=== PATIENT | female | born 1985 | race Caucasian/White ===

== ENCOUNTER → 2020-04-12 01:00 | Outpatient (BNVA) | payer OTHER, SELFPAY | PROVIDERS: Family Provider Family Medicine; PCP Internal Medicine; Visit Provider Internal Medicine | DX: R05 Cough (principal) | CPT/HCPCS: 87426 ==

== ENCOUNTER 2020-06-01 18:56 | Inpatient (IN) | payer OTHER, SELFPAY ==
[2020-06-01] VITALS (14 sets, daily range): BP systolic 109–139; BP diastolic 61–89; PULSE 93–100; RESP 15–17; TEMP 37.6; BMI 33.5
[2020-06-01 19:51] LABS: Basophils % 0.6 %; Eosinophils % 0.1 %; Hematocrit 35.2 % (37.0-47.0); Lymphocytes # 1.1 10^3/uL (0.8-4.8); Lymphocytes % 16.6 %; Mean Corpuscular HGB Conc 34.1 g/dL (30.0-36.0); Mean Corpuscular Hemoglobin 31.9 pg (28.0-34.0); Mean Corpuscular Volume 93.6 fL (81-99); Mean Platelet Volume 12.7 fL (7.4-10.4); Monocytes # 0.6 10^3/uL (0.2-0.9); Monocytes % 9.3 %; Neutrophils # 4.95 10^3/uL (1.8-7.7); Nucleated Red Blood Cells % 0 %; Platelet Count 181 10^3/cmm (130-400); Red Blood Count 3.76 10^6/uL (4.1-5.3); Red Cell Distribution Width 13.2 % (12.1-15.1); White Blood Count 6.8 10^3/uL (4.0-10.0)
[2020-06-01] MEDS: dextrose 5%-lactated ringers 1,000 ML 125 ML IV (20:45)
[2020-06-01] MEDS: oxytocin 30 UNIT/500 ML BAG IV (20:46)
--- NOTE | 2020-06-01 21:57 | PC.NURSE ---
Called lab requesting information on when protein/creatinine ratio would be available, lab teach reports that machine is still down for maintenance for at least another hour. voice and data technician informed that UA order being placed on patient.
[2020-06-01] MEDS: fentaNYL 50 mcg/mL INJ 2mL IV ×2 (22:05→23:09)
[2020-06-01 22:38] LABS: Add Urine Microscopic? YES; Bilirubin Urine Neg (Negative); Blood Urine 2+ (Negative); Glucose Urine UA Norm (Normal); Ketones Urine Negative (Negative); Leukocyte Esterase Urine Trace (Negative); Nitrate Urine Negative (Negative); Protein Urine Neg (Negative); RBC Urine 0-4 /hpf (0-2); Specific Gravity, Urine 1.005 (1.005-1.030); Urine Appearance Hazy (CLEAR); Urine Color Yellow (Yellow); Urobilinogen Urine Norm (Negative)
[2020-06-01 22:39] LABS: Add Urine Culture? No; Bacteria Urine 2+ /hpf; Mucus Urine TRACE /hpf
[2020-06-01 23:21] LABS: Urine Creatinine 29 mg/dL (28-217); Urine Protein Random 5 mg/dL
[2020-06-01 23:24] LABS: UPRO/UCREAT Ratio 0.17 mg/mg CR
[2020-06-02] VITALS (121 sets, daily range): BP systolic 78–157; BP diastolic 43–94; PULSE 50–157; RESP 16–17; TEMP 36.6–37.5; O2SAT 87–99
[2020-06-02] MEDS: fentaNYL 50 mcg/mL INJ 2mL IV (01:07)
[2020-06-02] MEDS: ondansetron 2 mg/ML SDV 2 mL 4 MG IVP ×2 (02:06→13:09)
[2020-06-02] MEDS: ePHEDrine 50 mg/mL Inj 10 MG IVP (02:08)
[2020-06-02] MEDS: lactated ringers 1,000 ML 999 ML IV (08:28)
--- NOTE | 2020-06-02 09:32 | ANES.PROC ---
Anesthesia Procedures Procedure/Date: 06/02/20 Epidural: Time Out Performed: Yes Consents Signed: Procedure Consent Consent: requested by attending/covering physician, from patient, risks and benefits reviewed and patient agrees to proceed Lumbar Level: L3-L4 Epidural position: sitting Epidural procedure: sterile prep of area, 1% lidocaine to numb the area, 18 g needle, negative for paresthesia passed, neg for paresthesia, test dose given, 1.5% xylocaine 1:200k epi, placed PCEA, no systemic response, sterile dressing applied and 0.2% Ropiavacaine @ mls/hr (13) Additional Comments: This was replacement epidural--patient started feeling uncomfortable, like before epidural , patient bolused 100mcg fent and 5mls 0.2% rop with no relief. Previous epidural removed with tip intact. CARLA at 6cm cath at 11cm, 5mls of 2% lido through epidural needle with improvement in pain placed on pump at 13mls/hr.
--- NOTE | 2020-06-02 09:43 | PC.NURSE ---
0926 Dr Nichole at bedside to replace epidural catheter. existing epidural catheter removed by Dr Nichole in preparation for epidural procedure.
[2020-06-02] MEDS: dextrose 5%-lactated ringers 1,000 ML 125 ML IV (11:09)
--- NOTE | 2020-06-02 14:38 | PM.DELIVERY ---
Delivery Note: Date of delivery: June 02, 2020 Pre-Delivery Course: The patient presented to the hospital last night after being found to have multiple systolic blood pressures that were elevated to my office yesterday. She also had a severe headache. She had trace protein in her urine. Given her gestational age, the decision was made to proceed with a induction. Because of her previous section, a Dougherty bulb was used to initiate induction. We also started Pitocin shortly thereafter. The following morning, the Dougherty bulb finally fell out. An amniotomy was performed. The patient also had a epidural placed, and then another second epidural placed due to the ineffectiveness of the first epidural. She then progressed to complete without difficulty. Her was otherwise unremarkable. Her blood type is O+. Her GBS and her Covid status were negative. Her initial glucose screen was positive, but her follow-up 3-hour glucose screen was negative. The remainder of her labs were within normal limits. Delivery: DELIVERY: The patient progressed to complete without difficulty. She delivered a male with a weight of 7 pounds 5 ounces with Apgars of 8, 8. The baby was delivered from the ANGY position. The baby was then completely delivered and placed on the mother's abdomen. The cord was then clamped and cut. There was a nuchal cord x1 that was easily reduced prior to delivery of the head. There was no meconium. The placenta and 3 vessel cord were delivered intact shortly thereafter. The perineum and vaginal vault were carefully examined. No significant lacerations were noted. Both the mother and the baby were in stable condition. A&P Assessment and plan (1) 39 weeks gestation of : I anticipate routine care. The mother plans to breast-feed. If all goes well, I anticipate she will be discharged home tomorrow evening. Status: Resolved (2) Gestational hypertension: Status: Resolved (3) Headache in : Status: Resolved (4) , delivered: Status: Resolved Coding Level of Care Code Acute Cullet Trucker for Chg Fwd Diagnoses 39 weeks gestation of Z3A.39 Gestational hypertension O13.9 Headache in O26.899; R51.9 , delivered O34.219
[2020-06-02] MEDS: ibuprofen 800 mg tablet PO (16:38)
[2020-06-02] MEDS: lanolin oint 7 gm 1 APPLIC TOPICAL (16:38)
[2020-06-02] MEDS: benzocaine-menthol 78 gm Canister 1 SPRAY TOPICAL (16:38)
[2020-06-02] MEDS: acetaminophen 500 mg Tablet 1000 MG PO (20:17)
[2020-06-03 02:52] LABS: Hematocrit 33.8 % (37.0-47.0); Hemoglobin 10.9 g/dL (11.5-15.3); Mean Corpuscular HGB Conc 32.2 g/dL (30.0-36.0); Mean Corpuscular Hemoglobin 31.5 pg (28.0-34.0); Mean Corpuscular Volume 97.7 fL (81-99); Mean Platelet Volume 12.2 fL (7.4-10.4); Platelet Count 141 10^3/cmm (130-400); Red Blood Count 3.46 10^6/uL (4.1-5.3); Red Cell Distribution Width 13.7 % (12.1-15.1)
[2020-06-03 04:07] VITALS: BP 101/65; PULSE 76
[2020-06-03] MEDS: acetaminophen 500 mg Tablet 1000 MG PO (06:17)
[2020-06-03] MEDS: ibuprofen 800 mg tablet PO (08:19)
[2020-06-03] MEDS: docusate sodium 100 mg Capsule PO (08:20)
[2020-06-03] MEDS: prenatal vitamin Capsule 1 CAP PO (08:20)
[2020-06-03 10:19] VITALS: BP 112/76; PULSE 84
--- NOTE | 2020-06-03 11:53 | P.DS_ITS ---
Discharge Providers HOME SERVICE TECHNICIAN Date of Admission: 06/01/20 18:56 Date of Discharge: 06/03/20 Attending Provider at Admission: Lan Avery MD Attending Provider at Discharge: Lan Avery MD Primary Care Provider: Bridger Acevedo MD Diagnoses at Discharge Discharge Diagnosis (1) 39 weeks gestation of : Status: Acute (2) Gestational hypertension: Status: Acute (3) Headache in : Status: Acute (4) , delivered: Status: Acute Reason for Visit Reason for Visit: induction of labor Hospital Course Hospital Course The patient presented to the hospital at 38 weeks and 6 days with elevated blood pressure and a headache. Thankfully, her headache and her blood pressure resolved shortly after arrival to hospital. A Dougherty bulb induction was initiated due to her history of section. She is also placed on Pitocin. After the Dougherty bulb was expelled, and amniotomy was performed. She progressed to complete and had an unremarkable delivery of a healthy appearing male infant. Her course was also unremarkable. She breast-fed well. Her pain was well controlled. Her bleeding was within normal limits. Information Peripartum Data: Delivery Method: Vaginal Physical Exam Narrative: EXAM NARRATIVE: The patient is alert. She appears comfortable. Her heart has a regular rate and rhythm with no murmurs appreciated. Lungs are clear to auscultation bilaterally. Her fundus is firm and below the umbilicus. Urinary Catheter Management^: Dougherty Latex: Cath Placed During This Visit: yes Reason for Continuing Indwelling Catheter: Required Immobilization for Trauma or Surgery or Anesthesia Urinary Catheter Date of Insertion: 06/02/20 Urinary Catheter Time of Insertion: 03:26 Discharge Data Data Completed and Pending: Labs from last 24 hours 06/03/20 02:35 WBC 8.0 RBC 3.46 L Hgb 10.9 L Hct 33.8 L MCV 97.7 MCH 31.5 MCHC 32.2 RDW 13.7 Plt Count 141 MPV 12.2 H Vitals: Last Vital Signs Temp 99.5 F 06/02/20 16:03 Pulse 84 06/03/20 10:19 Resp 16 06/02/20 11:15 BP 112/76 06/03/20 10:19 Pulse Ox 99 06/02/20 09:19 Discharge Plan Discharge Patient Disposition: Home Condition: Stable Prescriptions: New ibuprofen 800 mg Tablet 800 mg PO TID Qty: 45 RF: 0 Discontinued famotidine [Pepcid] 20 mg Tablet 20 mg PO DAILY RF: 0 promethazine 25 mg tablet 25 mg PO Q6H PRN (Reason: Nausea) RF: 0 Discharge Orders: Discharge Order (Routine); Ordered 06/03/20 Ordered By: Lan Avery Referrals: Lan Avery MD [Family Provider] - 6 Weeks Charels Garcia MD [Physician] - 2 weeks (Umbilical hernia) Discharge Diet: Regular Discharge Activity: Limit activity as instructed Activity Restrictions/Additional Instructions: Encourage taking [id number]-ois-[id number] vitamin Discharge Attestations HOME SERVICE TECHNICIAN Time Spent in Discharge Care*: less than 30 min Coding Level of Care Code Acute Senior Supplier Quality Engineer for Chg Fwd Diagnoses 39 weeks gestation of Z3A.39 Gestational hypertension O13.9 Headache in O26.899; R51.9 , delivered O34.219
[2020-06-03 15:18] VITALS: BP 115/80; PULSE 92
[2020-06-03 15:25] VITALS: BP 115/80; PULSE 92; RESP 16; TEMP 36.3
== END 2020-06-03 15:25 | disposition home or self-care (01) | DRG 807 ==
PROVIDERS: Admitting Provider Family Medicine; Family Provider Family Medicine; PCP Internal Medicine; Visit Provider Family Medicine
DX: O13.4 Gestational [pregnancy-induced] hypertension without significant proteinuria, complicating childbirth (principal); Z37.0 Single live birth; Z3A.39 39 weeks gestation of pregnancy; O34.219 Maternal care for unspecified type scar from previous cesarean delivery; O69.2XX0 Labor and delivery complicated by other cord entanglement, with compression, not applicable or unspecified; O75.89 Other specified complications of labor and delivery; R51.9 Headache, unspecified
CPT/HCPCS: 12345; 36415; 51702; 59025; 59409; 81001; 82570; 84156; 85025; 85027; J2405; J2795; J3010

== ENCOUNTER 2020-06-17 20:14 | Outpatient (CLI) | payer OTHER, SELFPAY ==
[2020-06-17 20:15] VITALS: BMI 29.1
--- NOTE | 2020-06-17 20:15 | PC.NURSE ---
Spoke to Dr Avery at 195 regarding this patient's baby boy who is inpatient at this time. Advised Dr Avery this patient was vomiting and was having chills. Dr Avery spoke to this patient via telephone and then provided this RN with orders to triage patient, obtain IV access, run UA, CBC, CMP. Give 1 liter bolus of NS and 4ng Zofran IVP.
[2020-06-17 20:19] VITALS: BP 111/76; PULSE 112; RESP 15; TEMP 37.2; O2SAT 96
[2020-06-17 20:50] LABS: Basophils % 0.6 %; Eosinophils # 0.1 10^3/uL (0.0-0.8); Hematocrit 42.1 % (37.0-47.0); Lymphocytes # 0.6 10^3/uL (0.8-4.8); Lymphocytes % 11.4 %; Mean Corpuscular HGB Conc 33.3 g/dL (30.0-36.0); Mean Corpuscular Volume 93.3 fL (81-99); Mean Platelet Volume 10.4 fL (7.4-10.4); Monocytes % 0.8 %; Neutrophils # 4.32 10^3/uL (1.8-7.7); Neutrophils % 86.2 %; Nucleated Red Blood Cells % 0 %; Platelet Count 318 10^3/cmm (130-400); Red Blood Count 4.51 10^6/uL (4.1-5.3); Red Cell Distribution Width 12.9 % (12.1-15.1)
[2020-06-17] MEDS: sodium chloride 0.9% 1,000 ML 999 ML IV (20:57)
[2020-06-17] MEDS: ondansetron 2 mg/ML SDV 2 mL 4 MG IVP (20:58)
[2020-06-17 21:05] LABS: Alanine Aminotransferase 27 U/L (0-33); Albumin Level 3.8 g/dL (3.5-5.2); Alkaline Phosphatase 134 IU/L (35-105); Anion Gap 17.7 (5-19); Aspartate Amino Transferase 25 U/L (0-32); Blood Urea Nitrogen 17 mg/dL (6-20); Calcium 8.9 mg/dL (8.5-10.5); Carbon Dioxide 23 mmol/L (22-29); Chloride 104 mmol/L (98-107); Globulin 3.5 g/dL (1.3-4.6); Glomerular Filtration Rate 115.9 mL/min (90-130); Glucose 118 mg/dL (65-115); Osmolality Calculated 295 mOsm/kg (285-295); Potassium 3.7 mmol/L (3.5-5.1); Sodium 141 mmol/L (136-145); Total Bilirubin 0.6 mg/dL (0.15-1.2); Total Protein 7.3 g/dL (6.6-8.7)
[2020-06-17 22:19] LABS: Blood Urine 3+ (Negative); Glucose Urine UA Norm (Normal); Ketones Urine 1+ (Negative); Nitrate Urine Negative (Negative); Protein Urine Neg (Negative); Specific Gravity, Urine 1.005 (1.005-1.030); Urine Appearance Hazy (CLEAR); Urine Color Yellow (Yellow); pH Urine 5 (5-7)
[2020-06-17 22:20] LABS: Bilirubin Urine Neg (Negative); Leukocyte Esterase Urine 2+ (Negative); Urobilinogen Urine Norm (Negative)
[2020-06-17 22:25] LABS: RBC Urine 80-100 /hpf (0-2); WBC Urine 25-40 /hpf (0-5)
[2020-06-17 22:26] LABS: Add Urine Culture? No; Bacteria Urine 1+ /hpf; Mucus Urine TRACE /hpf
[2020-06-17] MEDS: cefTRIAXone 1,000 MG in sodium chloride 0.9% (plus) 50 ML 100 MG IV (22:54)
[2020-06-17 23:41] VITALS: BP 101/65; PULSE 127; RESP 17; TEMP 37.8; O2SAT 96
[2020-06-17 23:55] VITALS: BP 101/65; PULSE 127; RESP 17; TEMP 37.8; O2SAT 96
--- NOTE | 2020-06-18 02:33 | PC.NURSE ---
Patient complains of pain in Right side. No rebound tenderness noted. Pain is not on abdomen or back but confined to side.
--- NOTE | 2020-06-18 02:37 | PC.NURSE ---
Patient complains of pain in Right side. No rebound tenderness noted. Pain is not on abdomen or back but confined to side. Patient reports pain has been present since after delivery.
== END 2020-06-17 23:55 | disposition home or self-care (01) ==
LOC: OPOB 20:15 → OBGYN 20:17
PROVIDERS: Family Provider Family Medicine; PCP Internal Medicine; Visit Provider Family Medicine
DX: O21.9 Vomiting of pregnancy, unspecified (principal); Z3A.00 Weeks of gestation of pregnancy not specified
CPT/HCPCS: 36415; 80053; 81001; 85025; 87086; 99211; J0696; J2405; J7030

== ENCOUNTER 2020-06-18 07:47 | Observation (INO) | payer OTHER, SELFPAY ==
[2020-06-18] VITALS (23 sets, daily range): BP systolic 88–112; BP diastolic 46–74; PULSE 74–117; RESP 12–19; TEMP 36.9–38.5; O2SAT 92–98
--- NOTE | 2020-06-18 07:48 | CT_ITS ---
WS: [id number] CT pelvis TECHNIQUE: Contrast-enhanced CT of the pelvis with coronal and sagittal reformatted images. CLINICAL INFORMATION: ? appy vs. septic thrombophlebitis COMPARISON: None. DLP: 688.[address] scans at [facility] use at least one of these dose optimization techniques: automat ed exposure control; mA and/or kV adjustment per patient size (includes targeted exams where dose is matched to clinical indication); or iterative reconstruction. FINDINGS: Inflammatory stranding and edema about the appendix with large appendicolith. Findings cons istent with acute appendicitis. Appendix is retrocecal and extends cephalad off the [id number]. Di stended appendix measures 13 mm. Large appendicolith measuring 7 mm. No visualized abscess or fluid collection. Incidental fat-containing umbilical hernia. Slight anterolisthesis L5 on S1 with bilateral pars defec ts. Mild disc space narrowing L5-S1. Distended heterogeneously enhancing uterus. No significant free fluid in the pelvis. Gabi l visualized adnexa. CT/CT pelvis w con* [id number] IMPRESSION: 1. Findings compatible with acute appendicitis with appendicolith. Appendix is retrocecal and extends cephalad with the distal tip just off the [id number] . 2. No visualized periappendiceal abscess or fluid collection. 3. uterus. 4. Bilateral L5-S1 pars defects with slight anterolisthesis. Notified Lan Avery MD at 06/18/2020 10:14 AM.
[2020-06-18 08:16] LABS: Basophils # 0.1 10^3/uL (0.0-0.1); Basophils % 0.6 %; Eosinophils % 0.1 %; Hematocrit 38.3 % (37.0-47.0); Hemoglobin 12.9 g/dL (11.5-15.3); Lymphocytes # 0.4 10^3/uL (0.8-4.8); Lymphocytes % 2.9 %; Mean Corpuscular HGB Conc 33.7 g/dL (30.0-36.0); Mean Corpuscular Hemoglobin 31.2 pg (28.0-34.0); Mean Corpuscular Volume 92.5 fL (81-99); Monocytes # 0.4 10^3/uL (0.2-0.9); Monocytes % 2.5 %; Neutrophils # 13.04 10^3/uL (1.8-7.7); Neutrophils % 93.5 %; Nucleated Red Blood Cells % 0 %; Platelet Count 250 10^3/cmm (130-400); Red Blood Count 4.14 10^6/uL (4.1-5.3); Red Cell Distribution Width 13.2 % (12.1-15.1)
[2020-06-18] MEDS: iohexol 300 mg/mL 50 mL Btl PO (08:30)
--- NOTE | 2020-06-18 08:30 | PC.NURSE ---
Notified CT of patient's ability to drink about half of her lemonade contrast. CT stated that would be ok, and they would be up in about an hour to get the patient.
[2020-06-18] MEDS: sodium chloride 0.9% 1,000 ML 150 ML IV (08:38)
[2020-06-18 08:46] LABS: Alanine Aminotransferase 39 U/L (0-33); Albumin Level 3.5 g/dL (3.5-5.2); Alkaline Phosphatase 113 IU/L (35-105); Anion Gap 14.4 (5-19); Aspartate Amino Transferase 41 U/L (0-32); Blood Urea Nitrogen 14 mg/dL (6-20); Calcium 8.3 mg/dL (8.5-10.5); Carbon Dioxide 23 mmol/L (22-29); Chloride 107 mmol/L (98-107); Creatinine Clr Calc Pharmacy 150.2528; Globulin 3.1 g/dL (1.3-4.6); Glomerular Filtration Rate 115.9 mL/min (90-130); Glucose 103 mg/dL (65-115); Osmolality Calculated 293 mOsm/kg (285-295); Potassium 3.4 mmol/L (3.5-5.1); Sodium 141 mmol/L (136-145); Total Bilirubin 0.4 mg/dL (0.15-1.2); Total Protein 6.6 g/dL (6.6-8.7)
[2020-06-18] MEDS: ondansetron 2 mg/ML SDV 2 mL IVP ×2 (09:15→13:32)
[2020-06-18] MEDS: morphine 4 mg/mL SDV 1 mL IVP ×3 (09:20→13:36)
[2020-06-18] MEDS: iohexol 300 mg/mL 100 mL Btl IV (09:56)
--- NOTE | 2020-06-18 10:27 | PM.HP ---
Providers/Chief Complaint Primary Care Provider: Bridger Acevedo MD Chief Complaint: Abdominal pain History of Present Illness Myra Ramirez is a 34 year old female who is in the hospital with her child who is receiving therapy for hyperbilirubinemia. She has not had an appetite and began having pelvic pain last night. She vomited 2 times. She was triaged in the OB dept An initial evaluation showed a normal cbc and she was given zofran and a liter of fluid. Her UA demonstrated a possible UTI. She was given a gram of Rocephin. She began feeling much better. She was discharged. This morning, she still felt nauseated and was having RLQ abdominal pain. She also had a fever during the night. She was readmitted. The CBC was repeated and a CT scan was perfromed which demonstrated appendicitis. Dr Walker was contacted Review of Systems General: Reports: 10 or more systems reviewed and unremarkable except in HPI and below : Reports: vaginal bleeding (minimal - Appropriate for state) Medications/Allergies Home Medications Medication Instructions Recorded Confirmed Last Taken Type ibuprofen 800 mg PO TID #45 tab 06/03/20 06/18/20 06/17/20 Rx acetaminophen 650 mg PO Q6H PRN 06/18/20 06/18/20 Unknown History promethazine 25 mg PO Q6H PRN 06/18/20 06/18/20 06/17/20 History Allergies Allergy/AdvReac Type Severity Reaction Status Date / Time No Known Allergies Allergy Verified 06/18/20 08:35 Vitals/I&O/Wt Last Vital Signs Temp 98.5 F 06/18/20 08:33 Pulse 102 H 06/18/20 08:33 Resp 16 06/18/20 09:20 BP 93/63 06/18/20 08:33 Pulse Ox 96 06/18/20 08:33 Weight last 48 hrs Weight 186 lb Physical Exam Const: COMMON NORMALS: patient oriented x3 GENERAL APPEARANCE: cooperative and well developed HENMT: COMMON NORMALS: normocephalic and moist oral mucous membranes HEAD & SCALP: normocephalic Chest: COMMONS NORMALS: normal inspection of the chest Resp: COMMON NORMALS: normal respiratory effort and clear to auscultation bilaterally AUSCULTATION: clear to auscultation bilaterally Cardio: COMMON NORMALS: regular rate, regular rhythm, No gallops present (Cardio), No murmurs present (Cardio) and No rub (Cardio) RATE: regular rate RHYTHM: regular rhythm GI: COMMON NORMALS: Soft to palpation and no masses INSPECTION: Yes normal to inspection PALPATION: Yes Soft to palpation, Yes Tenderness to palpation present (GI) (RLQ), No Guarding due to palpation present (GI) and No Rebound tenderness present Extremity: COMMON NORMALS: normal to inspection Neuro: COMMON NORMALS: patient oriented x3 and no focal motor deficits Skin: COMMON NORMALS: no rashes or lesions noted GENERAL SKIN EXAM: no rashes or lesions noted Data : 06/18/20 08:05 06/18/20 08:05 A&P Assessment and plan (1) , delivered: Status: Resolved (2) Gestational hypertension: Status: Resolved (3) Appendicitis: Dr Walker consulted. He will see the patient shortly for evaluation and definitive treatment. Status: Acute (4) RLQ abdominal pain: Status: Acute Attestations Medical Necessity Statement*: I anticipate routine appendectomy and post operative care but length of stay will be determined based on the patients recovery from surgery. Coding Level of Care Code Acute Visitor Services Coordinator for Chg Fwd Diagnoses , delivered O34.219 Gestational hypertension O13.9 Appendicitis K37 RLQ abdominal pain R10.31
[2020-06-18] MEDS: sodium chloride 0.9% 1,000 ML 999 ML IV (11:47)
--- NOTE | 2020-06-18 12:33 | PC.NURSE ---
Baby had just taken 2 oz of expressed breastmilk from a bottle that dad fed to him. Baby was still rooting and seemed hungry. Mom took him to latch. He nursed for several minutes. We did deepen his latch. Discussed with mom why the deep latch was important. Noted baby's suck was not as strong as I think it could be as my finger slid out rather easily with very little pull from baby. I did not note any oral abnormalities. He spends about 30 min per mom's report on each breast and sometimes still wants to pacify.Mom thought baby fed about 12 times per day but the timing she reports leads me to think he may only be feeding 6 or 8 times in 24 hours. He may not be emptying the breast very well. He falls asleep easily (discussed the jaundice making him sleepy also). Suggested they feed baby about 20 to 30 min or less if he needs to be roused to continue at the breast then feed expressed breastmilk until satisfied. Mom should then pump and use that milk after next . Baby's suck may get stronger as he gains weight
--- NOTE | 2020-06-18 14:55 | PC.NURSE ---
Patient transported to OR via [facility] with OR staff at 1453.
--- NOTE | 2020-06-18 15:10 | ANES.PREANE2 ---
Pre-Anesthetic Assessment Pre-Anesthetic Assessment: Height/Weight: Height 1.7 m Weight 84.368 kg Temp Pulse Resp BP Pulse Ox 99.7 F H 117 H 16 100/67 98 06/18/20 13:30 06/18/20 13:30 06/18/20 13:36 06/18/20 13:30 06/18/20 13:30 Preop Diagnosis: Acute appendicitis Proposed Procedure: Operation Date: 06/18/20 15:35 Proposed Procedures p Laparoscopic Appendectomy(Not Applicable) - Jacky Walker MD Was Beta Valentin taken within 24 hours: N/A Social: Social History: No alcohol Exam: Pre-Anes Outpt Exam: alert, oriented x 3, clear to auscultation bilaterally and regular rate & rhythm Airway: Submandibular: WNL Cervical ROM: WNL MP: 2 Dentition: Full GI: Comments: Acute abdomen--two weeks Anesthetic Plan: ASA status: 2E Anesthesia: General Other: Mod RSI Meds/Allergies Current Medications: Current Medications Generic Name Dose Route Start Last Admin Trade Name Joseq PRN Reason Stop Dose Admin Sodium Chloride 1,000 mls @ 150 m ls/hr 06/18/20 08:00 06/18/20 11:48 Sodium Chloride 0.9% IV Infused .Q6H40M LEONCIO Infusion Morphine Sulfate 2 - 4 mg 06/18/20 11:06 06/18/20 13:36 Morphine 4 Mg/Ml Sdv 1 Ml IVP 2 mg Q2H PRN Administration SEVERE PAIN Ondansetron HCl 4 - 8 mg 06/18/20 08:44 06/18/20 13:32 Ondansetron 2 Mg /Ml Sdv 2 Ml IVP 4 mg Q4H PRN Administration NAUSEA AND VOMITI NG Data Anesthesia CBC & Chem 7: 06/18/20 08:05 06/18/20 08:05 Other Labs: Laboratory Results - last 48 hr 06/18/20 06/18/20 08:05 08:05 WBC 14.0 H RBC 4.14 Hgb 12.9 Hct 38.3 MCV 92.5 MCH 31.2 MCHC 33.7 RDW 13.2 Plt Count 250 MPV 11.0 H Neut % (Auto) 93.5 Lymph % (Auto) 2.9 [place] % (Auto) 2.5 Eos % (Auto) 0.1 Baso % (Auto) 0.6 Neut # (Auto) 13.04 H Lymph # (Auto) 0.4 L [place] # (Auto) 0.4 Eos # (Auto) 0.0 Baso # (Auto) 0.1 Nucleated RBC % (auto) 0 Nucleated RBCs # 0.0 Sodium 141 Potassium 3.4 L Chloride 107 Carbon Dioxide 23 Anion Gap 14.4 BUN 14 Creatinine 0.6 GFR Calculation 115.9 Glucose 103 Calculated Osmolality 293 Calcium 8.3 L Total Bilirubin 0.4 AST 41 H ALT 39 H Alkaline Phosphatase 113 H Total Protein 6.6 Albumin 3.5 Globulin 3.1 Cardiac Studies: No Data to Display
[2020-06-18] MEDS: scopolamine 1.5 Patch 1 PATCH TRANSDERMA (15:17)
[2020-06-18] MEDS: ondansetron 2 mg/ML SDV 2 mL 4 MG IVP (15:18)
[2020-06-18] MEDS: sodium chloride 0.9% 1,000 ML 30 ML IV (15:27)
[2020-06-18] MEDS: diphenhydrAMINE 50 mg/mL SDV 1mL 12.5 MG IVP (15:28)
[2020-06-18] MEDS: HYDROmorphone 1 mg/mL INJ 1 mL 0.5 MG IVP (15:31)
[2020-06-18] MEDS: piperacillin-tazobactam 3.375 GM in sodium chloride 0.9% (plus) 50 ML IV (16:00)
--- NOTE | 2020-06-18 17:28 | PM.OP ---
Operative Report Date of procedure: June 18, 2020 Pre-op Diagnosis: 1.Acute appendicitis Pre-op Diagnosis: 2. Supraumbilical hernia Post-op Diagnosis: 1. Acute appendicitis 2. Reducible incisional hernia containing omentum Procedure Done: Laparoscopic appendectomy Open primary repair of incisional hernia Specimens removed/disposition: Appendix Surgeon: Jacky Walker Anesthesia: General Condition: stable Disposition: PACU Procedure: The patient was taken to the Operating Room and intubated under general anesthesia after antibiotic had been administered. Using a 15 blade, a 1-cm infraumbilical incision was made and using open Spencer technique, the peritoneal cavity was entered. A 12mm port with balloon was placed and 15 mm of pneumoperitoneum was created and 10-mm 30 degree scope was introduced. Two separate 5mm ports were placed in the suprapubic area and left lower quadrant under direct visualization. The appendix was noted in the right lower quadrant and appeared acutely inflamed and adherent to the cecum. Using [place] forceps, an opening was made in the mesoappendix near the base of the appendix. An Endo MARÍA ELENA stapler 45mm long 3.5mm blue load was introduced to divide the appendix at it's base. Using electrocautery, the mesoappendix including the appendicular artery was divided. There was no bleeding noted and the staple line appeared intact. EndoCatch bag was introduced to remove the appendix. All three ports were removed under direct visualization and there was no bleeding noted on the port sites. The umbilical incision was extended and the hernia had been previously visualized with a laparoscope superior to the umbilicus. Using electrocautery, subcutaneous flaps were raised superiorly and using Metzenbaum scissors the incisional hernia sac superior to the umbilical stalk was excised. The hernia defect measured about 4 cm. The hernia defect was closed primarily using 0 Vicryl sutures. 20 cc of 0.5% Marcaine was infiltrated at the port sites. The fascia at the umbilical port was closed using figure of eight 0-Vicryl sutures and subcutaneous tissue was approximated using 3-0 Vicryl and skin at all 3 port sites was closed using 4-0 Monocryl and surgical glue. The patient was extubated and transferred to recovery room in stable condition.
--- NOTE | 2020-06-18 17:38 | SUR.PHASEI ---
1713 PT TO OPS BAY 11 PT SLEEPS WITH GOOD RESP EFFORT NOTED PT TEMP ELEVATED AND SLIGHTLY DIAPHORETIC, PT BLANKETS DOWN TO 2 COOL CLOTH TO FOREHEAD, PT DOES NOT AWAKE, VSS BP LOW AT 88/46. IV INCREASED TO MOD RATE. PT ABD SOFT WITH 3 SITES WITH UMBILICAL SITE WITH 2X2 TELFA ALL DRY AND INTACT, BILAT SCDS ON . FRACTIONATING STILL OPERATOR AT BEDSIDE 1747 PT STILL SLEEPS VSS.N DISTRESS NOTED FRACTIONATING STILL OPERATOR AT BEDSIDE.
--- NOTE | 2020-06-18 18:16 | ANE.PACU2 ---
Inpatient post-anesthesia follow up: Airway intact: Yes Vital signs: Temperature 100.5 F Pulse Rate 98 Respiratory Rate 14 Blood Pressure 112/73 Pulse Oximetry 97 Oxygen Delivery Me thod Nasal Cannula Oxygen Flow Rate 3 Fraction of Inspir ed Oxygen Hydration adequate: Yes Nausea and vomiting: No Pain level: 2 Additional Comments: Sedated
[2020-06-18] MEDS: HYDROcodone-acetaminophen 5-325 mg Tablet 1 TAB PO (19:00)
[2020-06-18] MEDS: docusate sodium 100 mg Capsule PO (19:01)
[2020-06-18] MEDS: D5-NS 0.45% + KCL 20 mEq 20 MEQ/1,000 ML BAG 100 MEQ IV (19:27)
[2020-06-18] MEDS: morphine 4 mg/mL SDV 1 mL 3 MG IV ×2 (21:44→23:18)
[2020-06-19] VITALS: BP 92/55; PULSE 63; RESP 14; TEMP 36.6; O2SAT 95
[2020-06-19] MEDS: HYDROcodone-acetaminophen 5-325 mg Tablet 1 TAB PO ×2 (01:49→08:48)
[2020-06-19 05:14] VITALS: RESP 18
[2020-06-19] MEDS: morphine 4 mg/mL SDV 1 mL 3 MG IV (05:14)
[2020-06-19 06:52] VITALS: BP 101/70; PULSE 64; RESP 15; TEMP 36.3
[2020-06-19] MEDS: docusate sodium 100 mg Capsule PO (08:47)
--- NOTE | 2020-06-19 10:08 | P.DS_ITS ---
Discharge Providers PLATINUM AND PALLADIUM KETTLE TENDER Date of Discharge: 06/19/20 Attending Provider at Discharge: Lan Avery MD Primary Care Provider: Bridger Acevedo MD Diagnoses at Discharge Discharge Diagnosis (1) , delivered: Status: Resolved (2) Gestational hypertension: Status: Resolved (3) Appendicitis: Status: Acute (4) RLQ abdominal pain: Status: Resolved Reason for Visit Reason for Visit: Abdominal pain Discharge Data Data Completed and Pending: Completed Studies During Hospitalization Category Date Time Status CT pelvis w con* [id number] Stat Cat Scan 06/18/20 07:48 Completed Pending at discharge Category Date Time Status Pathology: Surgic al [PTH] Routine Pth 06/18/20 16:21 Ordered Vitals: Last Vital Signs Temp 97.4 F L 06/19/20 06:52 Pulse 64 06/19/20 06:52 Resp 15 06/19/20 06:52 BP 101/70 06/19/20 06:52 Pulse Ox 95 06/19/20 00:00 Discharge Plan Discharge Patient Disposition: Home Prescriptions: New hydrocodone-acetaminophen 5-325 mg Tablet 1 tab PO Q6H PRN (Reason: Moderate Pain) Qty: 20 RF: 0 Continued ibuprofen 800 mg Tablet 800 mg PO TID Qty: 45 RF: 0 acetaminophen 650 mg Tablet 650 mg PO Q6H PRN (Reason: Pain) RF: 0 promethazine 25 mg Tablet 25 mg PO Q6H PRN (Reason: Nausea) RF: 0 Discharge Orders: Discharge Order (Routine); Ordered 06/19/20 Ordered By: Lan Avery Referrals: Lan Avery MD [Family Provider] - 4-7 days Diet: Regular Activity: Limit activity as instructed Discharge Attestations PLATINUM AND PALLADIUM KETTLE TENDER Time Spent in Discharge Care*: less than 30 min Coding Level of Care Code Acute Transit Operations Supervisor for Chg Fwd Diagnoses , delivered O34.219 Gestational hypertension O13.9 Appendicitis K37 RLQ abdominal pain R10.31
--- NOTE | 2020-06-19 10:13 | PM.OBGYDC ---
Discharge Providers CONSULTING BUSINESS DEVELOPER Date of Discharge: 06/19/20 Attending Provider at Discharge: Lan Avery MD Primary Care Provider: Bridger Acevedo MD Diagnoses at Discharge Discharge Diagnosis (1) , delivered: Status: Resolved (2) Gestational hypertension: Status: Resolved (3) Appendicitis: Status: Acute (4) RLQ abdominal pain: Status: Resolved Reason for Visit Reason for Visit: Abdominal pain Hospital Course Hospital Course The patient was in the hospital with her due to jaundice when she began having difficulty with feeling nauseated, vomiting, and having right lower quadrant abdominal pain. As result she was admitted to the hospital where she was found to have a white blood count of 14,000, and had a CAT scan which demonstrated appendicitis. Dr. Walker was consulted. He performed an appendectomy as well as a hernia repair. The patient did very well postoperatively. She has had no complications. She is eating well without difficulty. Her pain is been well controlled. She is ready to go home. Physical Exam Narrative: EXAM NARRATIVE: The patient is alert. She appears comfortable. Her heart has a regular rate and rhythm with no murmurs appreciated. Lungs are clear to auscultation bilaterally. Her fundus is firm and below the umbilicus. Bowel sounds are positive. All 3 incisions are clean dry and intact. Discharge Data Data Completed and Pending: Completed Studies During Hospitalization Category Date Time Status CT pelvis w con* [id number] Stat Cat Scan 06/18/20 07:48 Completed Pending at discharge Category Date Time Status Pathology: Surgic al [PTH] Routine Pth 06/18/20 16:21 Ordered Addt'l Data from Hospital Stay: The patient's CT scan demonstrated appendicitis with no perforation or rupture. On June 17 her white blood count was 5.0 with a hemoglobin of 14.0 and a platelet count of 318 with no left shift noted. On June 18 her white blood count was noted to be 14.0 with a hemoglobin of 12.9 and a platelet count of 250. Metabolic panel is also performed on both days. With notable abnormalities being a potassium of 3.4 on June 18 as well as a minimally elevated AST and ALT. On June 17 her urinalysis demonstrated 1+ ketones, 3+ of blood in the urine, 2+ leukocyte esterase, 80-100 red blood cells, 25-40 white blood cells, 10-15 squamous epithelial cells, and 1+ urine bacteria. Vitals: Last Vital Signs Temp 97.4 F L 06/19/20 06:52 Pulse 64 06/19/20 06:52 Resp 15 06/19/20 06:52 BP 101/70 06/19/20 06:52 Pulse Ox 95 06/19/20 00:00 Discharge Plan Discharge Patient Disposition: Home Prescriptions: New hydrocodone-acetaminophen 5-325 mg Tablet 1 tab PO Q6H PRN (Reason: Moderate Pain) Qty: 20 RF: 0 Continued ibuprofen 800 mg Tablet 800 mg PO TID Qty: 45 RF: 0 acetaminophen 650 mg Tablet 650 mg PO Q6H PRN (Reason: Pain) RF: 0 promethazine 25 mg Tablet 25 mg PO Q6H PRN (Reason: Nausea) RF: 0 Discharge Orders: Discharge Order (Routine); Ordered 06/19/20 Ordered By: Lan Avery Referrals: Lan Avery MD [Family Provider] - 4-7 days Diet: Regular Activity: Limit activity as instructed Discharge Attestations CONSULTING BUSINESS DEVELOPER Time Spent in Discharge Care*: less than 30 min Coding Level of Care Code Acute Oliving Machine Operator for Chg Fwd Diagnoses , delivered O34.219 Gestational hypertension O13.9 Appendicitis K37 RLQ abdominal pain R10.31
--- NOTE | 2020-06-19 10:57 | P.PN_ITS ---
Subjective Subjective: Interval history: Patient feels a lot better today, no nausea or vomiting, passing flatus, no BM Vitals/I&O/Wt Last Vital Signs Temp 97.4 F L 06/19/20 06:52 Pulse 64 06/19/20 06:52 Resp 15 06/19/20 06:52 BP 101/70 06/19/20 06:52 Pulse Ox 95 06/19/20 00:00 06/18/20 06/19/20 06/19/20 22:59 06:59 14:59 Intake Total 2730 / 4704.45 1000 / 1000 Output Total 125 / 125 400 / 400 Balance 2605 / 4579.45 600 / 600 Weight last 48 hrs Weight 186 lb Physical Exam Narrative: EXAM NARRATIVE: Abdomen: Soft, minimally tender, incisions clean dry and intact Data : 06/18/20 08:05 06/18/20 08:05 A&P Assessment and plan (1) S/P laparoscopic appendectomy: Doing well, DC home today Follow-up in 2 weeks Discharge instructions given Status: Acute Attestations Medical Necessity Statement*: Status post lap appendectomy doing well going home today Coding Level of Care Code Acute Government Property Inspector for Chg Fwd Diagnoses S/P laparoscopic appendectomy Z90.49
[2020-06-19 11:13] VITALS: BP 120/80; PULSE 62; RESP 14; TEMP 36.8; O2SAT 97
== END 2020-06-19 11:56 | disposition home or self-care (01) ==
LOC: OBGYN 15:04
PROVIDERS: Surgery; Admitting Provider Family Medicine; Family Provider Family Medicine; PCP Internal Medicine; Visit Provider Family Medicine
PROC: 0DTJ4ZZ Resection of Appendix, Percutaneous Endoscopic Approach (ICD-10-PCS; CPT 44970; principal; 2020-06-18 15:15)
DX: K35.80 Unspecified acute appendicitis (principal); K42.9 Umbilical hernia without obstruction or gangrene
CPT/HCPCS: 44970; 12345; 36415; 72193; 80053; 85025; 88304; 96374; 96375; G0378; J0131; J1100; J1170; J1200; J1885; J2270; J2405; J2543; J2550; J2704; J3010; J3490; J7030; Q9967

== ENCOUNTER 2020-06-18 14:40 | Day surgery (SDC) | payer OTHER, SELFPAY ==
--- NOTE | 2020-06-18 15:20 | P.CONIM_ITS ---
Providers/Reason For Consult Consulting Physican/Specialty*: Dr. Avery Reason for Consult*: Acute appendicitis Attending Physician: Jacky Walker MD Primary Care Provider: Bridger Acevedo MD History of Present Illness History of Present Illness Myra Ramirez is a 34 year old female who had a second child on 06/02/2020. Patient has been having intermittent episodes of right lower quadrant pain but developed worsening right lower quadrant pain associated with fever, nausea and vomiting last night. Patient denies any constipation or diarrhea. CT scan today showed acute appendicitis. The pain does not radiate, worse with physical activity, no relieving factors Review of Systems General: Reports: 10 or more systems reviewed and unremarkable except in HPI and below Meds/Allergies Home Medications and Allergies Home Medications Medication Instructions Recorded Confirmed Last Taken Type ibuprofen 800 mg PO TID #45 tab 06/03/20 06/18/20 06/17/20 Rx acetaminophen 650 mg PO Q6H PRN 06/18/20 06/18/20 Unknown History promethazine 25 mg PO Q6H PRN 06/18/20 06/18/20 06/17/20 History Allergies Allergy/AdvReac Type Severity Reaction Status Date / Time No Known Allergies Allergy Verified 06/18/20 08:35 PFSH Acute PFSH: Surgical History (Updated 06/18/20 @ 15:19 by Jacky Walker MD) H/O laparoscopy History of delivery Status post laparoscopic cholecystectomy (vaginal after ) Physical Exam Narrative: EXAM NARRATIVE: HEENT: Normocephalic Eye: Sclera /conjunctiva normal Abdomen: Soft to palpation, small umbilical hernia, tender right lower quadrant, mild guarding no rigidity Neurological: Oriented to place person and time Skin: Intact, no lesions appreciated on gross exam A&P Assessment and plan (1) Appendicitis: 34-year-old female with right lower quadrant pain, nausea, vomiting , leukocytosis CT scan showing acute appendicitis Plan for laparoscopic possible open appendectomy Procedure, risks, benefits and alternatives have been discussed with the patient who wishes to proceed with surgery. Status: Acute Coding Level of Care Code Acute Data Governance Consultant for [facility] Fwd Diagnoses Appendicitis K37
== END 2020-06-18 19:00 | disposition home or self-care (01) ==
LOC: OR 04-23 13:29
PROVIDERS: Family Provider Family Medicine; PCP Internal Medicine; Visit Provider Surgery
DX: K37 Unspecified appendicitis (principal)
CPT/HCPCS: J1100; J1885; J2405; J2550; J2704; J3010; J3490

== ENCOUNTER → 2021-04-11 13:30 | Outpatient (BNVA) | payer OTHER, SELFPAY | PROVIDERS: Family Provider Family Medicine; PCP Internal Medicine; Visit Provider Nurse Practitioner Family | DX: R50.9 Fever, unspecified (principal) | CPT/HCPCS: 87400 ==

== ENCOUNTER → 2021-09-13 11:58 | Outpatient (BNVA) | payer OTHER, SELFPAY | PROVIDERS: Family Provider Family Medicine; PCP Internal Medicine; Visit Provider Internal Medicine | DX: N92.0 Excessive and frequent menstruation with regular cycle (principal) | CPT/HCPCS: 85025 ==

== ENCOUNTER 2021-09-14 15:29 | Outpatient (CLI) | payer OTHER, SELFPAY ==
--- NOTE | 2021-09-14 | US_ITS ---
WS: [id number] EARLY OBSTETRICAL ULTRASOUND (<14 WEEKS). HISTORY: HISTORY OF ECTOPIC COMPARISON: 01/19/2020. Transabdominal and transvaginal imaging is submitted. The uterus is anteverted and normal size. No in trauterine gestation is identified. No significant thickening of the endometrium. RIGHT ovary measures 4.3 x 4.2 x 2.6 cm. Mildly enlarged ovary. There is a hypoechoic mass with low-l evel echoes throughout and through transmission. No increased vascularity. This hypoechoic mass measu res 3.5 x 3.1 x 2.9 cm. Differential includes hemorrhagic cyst and endometrioma. Abnormal appearance in the LEFT adnexa. There is a complex mass within the LEFT adnexa. This does not have the appearance of a normal ovary. There is some mild increased peripheral vascularity. This ent stiven LEFT adnexal mass measures 5.8 x 4.4 x 3.4 cm. Inseparable from the ovary is a hypoechoic area wh ich is predominantly solid with only minimal increased vascularity. There are a few central calcifica tions with some shadowing. This hypoechoic area measures 2.8 x 3.4 x 3.2 cm. There is a small amount of free fluid in the cul-de-sac. This fluid is mildly complex suggesting hemo rrhage. US/US OB <=14 wk fetus w transvag IMPRESSION: 1. No intrauterine gestation identified. 2. Abnormal mass in the LEFT adnexa inseparable from the ovary. This is not a typical appearance for an ectopic . Ovarian neoplasm needs to be exclu ded. Short-term follow-up and follow-up with beta hCGs will be necessary to exc lude nonvisualized ectopic or atypical ectopic. 3. Hemorrhagic cyst versus endometrioma RIGHT ovary. 4. No dermoid or teratoma was noted on a recent CT of 06/18/2020 within the adn exa. Notified Lan Avery MD at 09/14/2021 4:00 PM.
== END 2021-09-14 15:30 | disposition home or self-care (01) ==
LOC: RADOUTREAD 15:33
PROVIDERS: PCP Internal Medicine; Visit Provider Family Medicine
DX: N94.89 Other specified conditions associated with female genital organs and menstrual cycle (principal); Z87.59 Personal history of other complications of pregnancy, childbirth and the puerperium
CPT/HCPCS: 84702

== ENCOUNTER → 2021-09-19 09:20 | Outpatient (BNVA) | payer OTHER, SELFPAY | PROVIDERS: PCP Internal Medicine; Visit Provider Internal Medicine | DX: D48.9 Neoplasm of uncertain behavior, unspecified (principal) | CPT/HCPCS: 84702 ==

== ENCOUNTER → 2021-09-21 09:10 | Outpatient (BNVA) | payer OTHER, SELFPAY | PROVIDERS: PCP Internal Medicine; Visit Provider Internal Medicine | DX: D48.9 Neoplasm of uncertain behavior, unspecified (principal) | CPT/HCPCS: 84702; 85025 ==

== ENCOUNTER → 2021-09-23 09:08 | Outpatient (BNVA) | payer OTHER, SELFPAY | PROVIDERS: PCP Internal Medicine; Visit Provider Obstetrics & Gynecology | DX: Z01.812 Encounter for preprocedural laboratory examination (principal); N83.8 Other noninflammatory disorders of ovary, fallopian tube and broad ligament | CPT/HCPCS: 80053; 81000; 85025; 86850; 86900 ==

== ENCOUNTER 2021-09-29 12:45 | Observation (INO) | payer OTHER, SELFPAY ==
[2021-09-28 11:47] VITALS: BMI 26.6
[2021-09-29] VITALS (15 sets, daily range): BP systolic 100–140; BP diastolic 61–83; PULSE 72–105; RESP 10–18; TEMP 36.2–36.8; O2SAT 97–99
--- NOTE | 2021-09-29 09:22 | W.PM.OPSUD ---
Surgery/Procedure H&P Update DATE OF PROCEDURE: September 29, 2021 DATE H&P PERFORMED: 09/23/21 H&P UPDATE INFORMATION: I have reviewed H&P completed within last 30 days, I have examined patient prior to procedure and Changes to prior documentation as noted here (no bleeding) PREOP DIAGNOSIS: Left ovarian, Desire permanent sterilization PLANNED PROCEDURE: Operation Date: 09/29/21 10:00 Proposed Procedures p Laparoscopic Salpingo Oophorectomy 70038/N83.8(Left) - Khurram Yancey MD s Laparoscopic Salpingectomy(Bilateral) - Khurram Yancey MD
--- NOTE | 2021-09-29 09:36 | ANES.PREANE2 ---
Pre-Anesthetic Assessment Height/Weight: Height 1.7 m Weight 77.111 kg Temp Pulse Resp BP Pulse Ox 98.0 F 80 18 103/80 98 09/29/21 09:11 09/29/21 09:11 09/29/21 09:11 09/29/21 09:11 09/29/21 09:11 Preop Diagnosis: Left ovarian, Desire permanent sterilization Operation Date: 09/29/21 10:00 Proposed Procedures p Laparoscopic Salpingo Oophorectomy 06749/N83.8(Left) - Khurram Yancey MD s Laparoscopic Salpingectomy(Bilateral) - Khurram Yancey MD Familial anesthetic complications: _PONV Was Beta Valentin taken within 24 hours: N/A Was Clonidine taken within 24 hours: N/A Last intake: > 8 hrs Social No alcohol and No tobacco Exam alert, oriented x 3, clear to auscultation bilaterally and regular rate & rhythm Airway Mallampati: Class I Dentition: full Pulmonary None reported CV/HEM None reported None reported Hepatic None reported GI None reported Metabolic None reported Musc/skel None reported Neuropsych None reported Anesthetic Plan ASA status: 1 Anesthesia: General Risk of > 500 ml blood loss (7ml/kg in children): No Medications/Allergies Home Medications Medication Instructions Recorded Confirmed Last Taken Type tretinoin 0.1 % topical cream 1 applic TOPICAL .qhs #45 g 08/26/20 09/28/21 Unknown Rx (Retin-A) bimatoprost 0.03 % drops with 1 applic TOPICAL DAILY #5 ml 01/06/21 09/28/21 Unknown Rx applicator, eyelash base dextroamphetamine-amphetamine ER 15 mg PO DAILY 02/16/21 09/28/21 Unknown History 15 mg 24hr capsule,extend release (Adderall XR) clobetasol 0.05 % scalp solution 1 applic TOPICAL DAILY #50 ml 04/20/21 09/28/21 Unknown Rx clobetasol 0.05 % topical foam 1 applic TOPICAL DAILY #50 g 04/20/21 09/28/21 Unknown Rx ketoconazole 2 % shampoo 1 applic TOPICAL .2 x weekly #120 04/20/21 09/28/21 Unknown Rx ml Allergies Allergy/AdvReac Type Severity Reaction Status Date / Time No Known Allergies Allergy Verified 09/28/21 11:45 [facility] Anesthesia Medical History (Updated 09/29/21 @ 08:21 by Khurram Yancey MD) Acne vulgaris Surgical History (Updated 09/23/21 @ 07:44 by Faith Nj, RN) H/O laparoscopy History of delivery History of incisional hernia repair (06/18/20) S/P laparoscopic appendectomy (06/18/20) Status post laparoscopic cholecystectomy (vaginal after ) Family History (Updated 09/23/21 @ 07:47 by Faith Nj, RN) Grandfather Diabetes maternal and paternal Colon cancer, Onset Age: 70 paternal Grandmother Diabetes maternal and paternal Father Hypertension Family/Other Thyroid condition maternal aunt Denies family history of Ovarian cancer Clotting disorder Heart disease Hyperlipidemia Breast cancer Anesthesia complication Bleeding disorder Uterine cancer Stroke Social History Smoking and tobacco status: never smoked Data Anesthesia Cardiac Studies: No Data to Display
[2021-09-29] MEDS: sodium chloride 0.9% 500 ML IV (09:45)
[2021-09-29] MEDS: sodium chloride 0.9% 1,000 ML 30 ML IV (09:53)
[2021-09-29] MEDS: scopolamine 1.5 Patch 1 PATCH TRANSDERMA (09:54)
[2021-09-29 10:00] LABS: OR HCG Qualitative Urine Negative (Negative)
[2021-09-29 10:11] LABS: HCG, Serum Qual Negative (Negative)
--- NOTE | 2021-09-29 10:50 | SUR.OPER ---
Called and notified him of surgical start and progress.
--- NOTE | 2021-09-29 12:05 | PM.OP ---
Operative Report Date of procedure: September 29, 2021 Pre-op diagnosis: Preop Diagnosis Left ovarian mass, Desire permanent sterilization Post-op diagnosis: Desire permanent sterilization. Left ovarian ectopic versus left ovarian mass Procedure done: Laparoscopic bilateral salpingectomy, Laparoscopic left oophorectomy Specimens removed/disposition: Left and right fallopian tube. Left ovary Surgeon: Khurram Yancey MD Estimated blood loss (mL): 25 IV fluids (mL): 700 Urine output (mL): 100 Procedure: After informed consent, the patient was taken to the operating room where general anesthesia was administered. She was placed in the dorsal lithotomy position and prepped and draped in sterile fashion. Pre-Procedure Time-Out verifying the correct patient identity, correct procedure verified with consent, correct site and side, correct patient position, availability of correct implants and any special equipment or requirements was performed and acknowledge by the OR team. The patient was examined under anesthesia and found to have a normal uterus with normal adnexa. A weighted speculum was placed in the vagina, and the anterior lip of cervix was grasped with the single toothed tenaculum. A uterine manipulator was advanced into the endocervical canal and uterus. The tenaculum was removed after uterine manipulator was secured. The speculum was removed from the vagina. Left upper quadrant incision was made with a scalpel. While tenting up on the abdomen, then [address] was [address] and secured then pneumoperitoneum was attained with 4 liters of carbon dioxide. A A second incision was made 3 cm above the symphysis pubis, and a 8 mm trocar sleeves were admitted into the abdomen under direct laparoscopic visualization without complication. A survey revealed normal abdominal anatomy. A 5 mm blunt probe was advanced through the second trocar sleeve, and light manipulation of ovaries and uterus to assess the posterior aspects was performed. The pelvic survey shows normal uterus,and right adnexa. The left adnexa/ovary was noted with ruptured mass possible ovarian ectopic. The patient was placed into Trendelenburg position. The fallopian tubes were inspected bilaterally and the fimbriated ends of the fallopian tubes were visualized bilaterally. Attention was then directed to the right side and the right fallopian tube and mesosalpinx were grasped and the underlying mesosalpinx was cauterized and cut using the Enseal device. Serial cauterization and cutting was used to separate the fallopian tube from the underlying mesosalpinx until it could be amputated cutting it approximated 2 cm from the cornua. Attention was then turned to the contralateral left fallopian tube, which was removed in similar fashion. Then the left ruptured ovary was grasped and the infundibulum ligament clamped sealed an cut. The an endobag was placed and the left ovarian mass and left fallopin tube were removed in the endobag. All specimens were removed through the trocar and sent to pathology. The instruments were removed. Mild bleeding was noted in the left infundibulopelvic ligament which was grasped again with the Enseal device clamped and sealed ensuring good hemostasis. Then the suprapubic trocar and left lower quadrant port were removed under direct visualization insuring good hemostasis. The carbon dioxide was allowed to escape from the abdomen. The intraumbilical trocar sleeve was withdrawn under visualization with laparoscope in the sleeve to insure hemostasis. The left upper quadrant incision was closed approximating the fascia with 0 Vicryl and the skin with 3-0 Vicryl and Dermabond. The suprapubic and left lower quadrant skin incisions were closed with 3-O Monocryl subcuticular stich and Dermabond. The instruments were removed from the vagina, and excellent hemostasis was noted. The patient tolerated the procedure well, and sponge, lap and needle count were correct times two. The patient was taken to the recovery room in good condition.
[2021-09-29] MEDS: ondansetron 2 mg/ML SDV 2 mL 4 MG IVP ×2 (12:25→12:40)
--- NOTE | 2021-09-29 13:32 | PC.NURSE ---
Patient to floor from PACU at this time
[2021-09-29] MEDS: ketorolac 30 mg/mL INJ IVP ×2 (13:37→21:12)
[2021-09-29] MEDS: dextrose 5%-lactated ringers 1,000 ML 125 ML IV ×2 (13:37→22:40)
--- NOTE | 2021-09-29 14:32 | ANE.PACU2 ---
Inpatient post-anesthesia follow up: Airway intact: Yes Vital signs: Temperature 97.2 F Pulse Rate 77 Respiratory Rate 18 Blood Pressure 131/64 Pulse Oximetry 99 Oxygen Delivery Me thod Room Air Oxygen Flow Rate 6 Fraction of Inspir ed Oxygen Hydration adequate: Yes Nausea and vomiting: No Pain level: 1 Mental status: Baseline
[2021-09-29] MEDS: acetaminophen 325 mg Tablet 650 MG PO (16:59)
[2021-09-29] MEDS: simethicone 80 mg Chew PO ×2 (16:59→21:49)
--- NOTE | 2021-09-29 19:00 | PC.NURSE ---
Patient was sleeping
[2021-09-29] MEDS: HYDROcodone-acetaminophen 5-325 mg Tablet PO (21:48)
[2021-09-30 00:05] VITALS: BP 94/58; PULSE 93; RESP 16; TEMP 36.9; O2SAT 97
[2021-09-30] MEDS: HYDROcodone-acetaminophen 5-325 mg Tablet PO (04:28)
[2021-09-30 04:30] VITALS: BP 98/64; PULSE 87; RESP 14; TEMP 36.7; O2SAT 97
[2021-09-30 05:19] LABS: Hematocrit 33.9 % (37.0-47.0); Hemoglobin 11.3 g/dL (11.5-15.3); Mean Corpuscular HGB Conc 33.3 g/dL (30.0-36.0); Mean Corpuscular Hemoglobin 31.4 pg (28.0-34.0); Mean Corpuscular Volume 94.2 fl (81-99); Mean Platelet Volume 10.8 fL (7.4-10.4); Platelet Count 246 10^3/cmm (130-400); Red Cell Distribution Width 13.2 % (12.1-15.1); White Blood Count 10.9 10^3/uL (4.0-10.0)
--- NOTE | 2021-09-30 07:28 | PM.OBGYDC ---
Discharge Providers BRUSH HOLDER INSPECTOR Date of Admission: 09/29/21 12:45 Date of Discharge: 09/30/21 Attending Provider at Admission: Khurram Yancey MD Attending Provider at Discharge: Khurram Yancey MD Primary Care Provider: Lan Avery MD Reason for Visit Reason for Visit: Brief History: Ms. Johnson is a 35 y/o with a LMP of 08/27/2021 who is not on control now who presents today for a follow up on abnormal ultrasound imaging. Mrs. Johnson had a Mirena IUD in place when she had a positive home test confirmed by her primary care provider who remove the Mirena IUD. Due to the increased risk of ectopic with IUD in place and ultrasound was performed which was significant for hemorrhagic cyst on the right adnexa and an abnormal left ovarian mass with calcifications. Her quantitative have been decreasing initially was 100 mIU/mL then 18 mIU/mL and 6 mIU/mL. Hospital Course Hospital Course Ms. Johnson is a 35 y/o admitted for laparoscopic bilateral salpingectomy and left oophorectomy. The procedures were performed without complication. Postop overnight observation uneventful. She is afebrile and hemodynamically stable postoperative day 1. Tolerated diet well. Ambulating without difficulty. Pain well under control. Physical Exam Narrative: GA: Alert and oriented ?3. HEENT: WNL. Heart: Regular rate and rhythm. Lungs: Clear to auscultation bilaterally. Abdomen: Bowel sounds present, minimal tenderness, incision clean and dry, no redness, pain or edema. AUDIO/VISUAL OPERATOR: No bleeding. Extremities: No edema, no cyanosis, no calves pain. Urinary Catheter Management: Dougherty: Cath Placed During This Visit: yes, but has since been removed by the nurse Reason for Continuing Indwelling Catheter: Decision to DC Catheter Urinary Catheter Date of Insertion: 09/29/21 Urinary Catheter Time of Insertion: 09:50 Date Urinary Catheter Removed: 09/29/21 Time Urinary Catheter Discontinued: 15:20 History History History 8 Term 2 Miscarriages/Ectopic 6 0 Living Children 2 Discharge Data Studies Completed and Pending Pending at discharge Category Date Time Status ES surgery / GI images Routine Exams 09/29/21 09:10 Taken Pathology: Surgical [PTH] Routine Pth 09/29/21 11:44 Received Laboratory Results WBC 10.9 10^3/uL (4.0-10.0) H 09/30/21 05:05 RBC 3.60 10^6/uL (4.1-5.3) L 09/30/21 05:05 Hgb 11.3 g/dL (11.5-15.3) L 09/30/21 05:05 Hct 33.9 % (37.0-47.0) L 09/30/21 05:05 MCV 94.2 fl (81-99) 09/30/21 05:05 MCH 31.4 pg (28.0-34.0) 09/30/21 05:05 MCHC 33.3 g/dL (30.0-36.0) 09/30/21 05:05 RDW 13.2 % (12.1-15.1) 09/30/21 05:05 Plt Count 246 10^3/cmm (130-400) 09/30/21 05:05 MPV 10.8 fL (7.4-10.4) H 09/30/21 05:05 HCG, Qual Negative (Negative) 09/29/21 09:30 Urine HCG, Qual Negative (Negative) 09/29/21 09:30 Vitals Last Vital Signs Temp 98.1 F 09/30/21 04:30 Pulse 87 09/30/21 04:30 Resp 14 09/30/21 04:30 BP 98/64 09/30/21 04:30 Pulse Ox 97 09/30/21 04:30 Discharge Plan Discharge Patient Disposition: Home Condition: Stable Prescriptions: New acetaminophen 325 mg capsule 325 mg PO Q4H PRN (Reason: fever or postoperative pain) Qty: 60 0RF ibuprofen 800 mg tablet 800 mg PO TID PRN (Reason: pain) Qty: 60 0RF hydrocodone-acetaminophen 5-325 mg tablet 1 tab PO Q4H PRN (Reason: pain) Qty: 20 0RF Continued tretinoin [Retin-A] 0.1 % cream 1 applic topical .qhs Qty: 45 3RF Rx Instructions: (RETIN-A)Apply pea-sized amount to face nightly dextroamphetamine-amphetamine [Adderall XR] 15 mg capsule,extended release 24hr 15 mg PO DAILY 0RF clobetasol 0.05 % solution 1 applic topical DAILY Qty: 50 3RF Rx Instructions: To itchy areas on scalp as needed(340b) clobetasol 0.05 % foam 1 applic topical DAILY Qty: 50 3RF Rx Instructions: to itchy areas on scalp prn(340b) ketoconazole 2 % shampoo 1 applic topical .2 x weekly Qty: 120 3RF Rx Instructions: Lather into scalp 2 times weekly. Allow to sit on scalp for 5 minutes before rinsing.(340B) bimatoprost 0.03 % drops with applicator 1 applic topical DAILY Qty: 5 11RF Rx Instructions: 340B please Discharge Orders: Discharge Order (Routine); Ordered 09/30/21 Ordered By: Khurram Yancey Discharge Diet: Usual diet Discharge Activity: Limit activity as instructed Patient Instructions: Female Sterilization, Salpingectomy (GEN), Laparoscopic Oophorectomy (GEN), Exploratory Laparoscopy (GEN), Opioid Safety Activity Restrictions/Additional Instructions: 1. Please call [facility] clinic on next working day to make your post-operative appointment in 2 weeks. 2. Please stay home until you come back to the clinic on first post-operative check up. 3. Please follow instructions on your medications CAREFULLY. 4. If you have abdominal incision, do not cover it unless dressing is necessary because of drainage. OK to shower, but avoid bath. Leave steri-strips until they fall off. If they are still on one week after surgery, you may remove them. 5. If you had vaginal surgery or vaginal repair, Dr. Yancey may instruct you to take SITZ bath. 6. Yellow, blood tinged odorous vaginal discharge is usually normal after hysterectomy or vaginal surgeries. 7. No sexual intercourse, tampons, or douches until you are completely released from the post-operative care. 8. Avoid constipation by eating right and maybe using some Metamucil or Milk of Magnesia. 9. All prescription refills are given during the working hours. Please do no wait till it runs out. Call the clinic at [phone] before your medication runs out. The clinic will get in touch with your doctor to prescribe medications if necessary. 10. Please remain within 40 mile radius from our hospital because emergencies do happen now and then during the post-operative period. 11. If you have stairs at home, take one step at a time slowly and minimize the number of trips. It helps to stay in one floor for the next few days. No lifting except what you can lift by one hand until you are released from the post-operative care. 12. Driving is discouraged until you are well healed. It may be 3-4 weeks before you feel strong enough to drive. You should be able to turn and look through the rear window without pain and you should be able to push the brake pedal very hard without pain before you drive. No fast rules, but SAFETY should be your primary concern. DO NOT drive if you are on sedating medications such as narcotics. 13. Call the clinic (during working hours) to make urgent appointment or go to the Emergency room, if any of the following occurs: i. Vaginal bleeding becomes heavy, more than a period. ii. Incision becomes red and sore, or drains pus. iii. Your temperature is over 100.4 or you have chill. iv. IV site becomes red and swollen (a little ``knot?? is usually OK) v. Persistent nausea and vomiting vi. Persistent constipation or diarrhea vii. Rash or allergic reaction to medications. Discharge Attestations BRUSH HOLDER INSPECTOR Time Spent in Discharge Care*: greater than 30 min Coding Level of Care Code Acute Technical Consultant for Yousif Burroughs
[2021-09-30 08:15] VITALS: BP 115/71; PULSE 73; RESP 16; TEMP 36.5; O2SAT 100
== END 2021-09-30 08:18 | disposition home or self-care (01) ==
LOC: OBGYN 12:45
PROVIDERS: Admitting Provider Obstetrics & Gynecology; PCP Family Medicine; Visit Provider Obstetrics & Gynecology
PROC: (CPT 58661; principal; 2021-09-29 10:00)
PROC: (CPT 58661; 2021-09-29 10:00)
PROC: (CPT 58661; 2021-09-29 10:00)
DX: N83.202 Unspecified ovarian cyst, left side (principal); Z30.2 Encounter for sterilization
CPT/HCPCS: 58661; 36415; 81025; 84703; 85027; 88302; G0378; J1100; J1170; J1200; J1885; J2250; J2405; J2704; J2710; J3010; J3490; J7030; J7040

== ENCOUNTER 2023-06-01 12:45 | Outpatient (RCR) | payer OTHER, SELFPAY | END 2023-06-06 23:59 | disposition home or self-care (01) | LOC: SPT 12:45 | PROVIDERS: PCP Family Medicine; Visit Provider Family Medicine | DX: M62.81 Muscle weakness (generalized) (principal) | CPT/HCPCS: 97161 ==

== ENCOUNTER 2023-06-12 13:20 | Outpatient (RCR) | payer OTHER, SELFPAY | END 2023-07-05 23:59 | disposition home or self-care (01) | LOC: SPT 13:20 | PROVIDERS: PCP Family Medicine; Visit Provider Family Medicine | DX: M62.81 Muscle weakness (generalized) (principal) | CPT/HCPCS: 97110 ==

== ENCOUNTER 2023-07-06 06:00 | Outpatient (RCR) | payer OTHER, SELFPAY | END 2023-08-05 23:59 | disposition home or self-care (01) | LOC: SPT 06:00 | PROVIDERS: PCP Family Medicine; Visit Provider Family Medicine | DX: M62.81 Muscle weakness (generalized) (principal) | CPT/HCPCS: 97110 ==

== ENCOUNTER 2023-08-06 06:00 | Outpatient (RCR) | payer OTHER, SELFPAY | END 2023-09-04 23:59 | disposition home or self-care (01) | LOC: SPT 06:00 | PROVIDERS: PCP Family Medicine; Visit Provider Family Medicine | DX: M62.81 Muscle weakness (generalized) (principal) | CPT/HCPCS: 97110 ==

== ENCOUNTER → 2024-07-03 08:39 | Outpatient (BNVA) | payer OTHER, SELFPAY | PROVIDERS: PCP Family Medicine; Visit Provider Nurse Practitioner Women's Health | DX: N92.0 Excessive and frequent menstruation with regular cycle (principal); N85.2 Hypertrophy of uterus; Z90.721 Acquired absence of ovaries, unilateral | CPT/HCPCS: 76830 ==

== ENCOUNTER → 2024-07-11 16:25 | Outpatient (BNVA) | payer OTHER, SELFPAY | PROVIDERS: PCP Family Medicine; Visit Provider Nurse Practitioner Women's Health | DX: N92.0 Excessive and frequent menstruation with regular cycle (principal); R53.83 Other fatigue; R00.2 Palpitations; L65.9 Nonscarring hair loss, unspecified; R53.82 Chronic fatigue, unspecified; G47.9 Sleep disorder, unspecified | CPT/HCPCS: 82306; 82607; 82728; 82746; 83540; 84439; 84443; 85025 ==

== ENCOUNTER → 2024-10-01 12:32 | Outpatient (BNVA) | payer OTHER, SELFPAY | PROVIDERS: PCP Family Medicine; Visit Provider Nurse Practitioner Women's Health | DX: N92.0 Excessive and frequent menstruation with regular cycle (principal) | CPT/HCPCS: 85025 ==